=== PATIENT | female | born 1985 | race African-American/Black ===

== ENCOUNTER 2017-09-13 04:38 | Emergency (ER) | payer OTHER ==
[2017-09-13 05:31] LABS: Basophils % (Auto) 0.3 % (0.0-1.8); Eosinophils # (Auto) 0.1 K/mm3 (0.0-0.4); Hematocrit 37.5 % (30.3-42.9); Hemoglobin 12.8 gm/dl (10.1-14.3); Lymphocytes # (Auto) 1.4 K/mm3 (1.2-5.4); Lymphocytes % (Auto) 20.4 % (13.4-35.0); Mean Corpuscular HGB Conc 34 % (30-34); Mean Corpuscular Hemoglobin 31 pg (28-32); Mean Corpuscular Volume 92 fl (79-97); Monocytes # (Auto) 0.4 K/mm3 (0.0-0.8); Monocytes % (Auto) 5.3 % (0.0-7.3); Platelet Count 236 K/mm3 (140-440); Red Blood Count 4.09 M/mm3 (3.65-5.03); Red Cell Distribution Width 13.2 % (13.2-15.2)
--- NOTE | 2017-09-13 05:35 | XRay Report ---
FINAL REPORT EXAM: XR ANKLE 2V RT HISTORY: right ankle pain TECHNIQUE: AP and lateral views of the right ankle were obtained. FINDINGS: The ankle mortise is well maintained. There is no evidence of fracture or joint effusion. The soft tissues are well maintained. IMPRESSION: Within normal limits
[2017-09-13 05:41] LABS: BUN/Creatinine Ratio 33; Blood Urea Nitrogen 13 mg/dL (7-17); Calcium 8.9 mg/dL (8.4-10.2); Hemolysis Index 2
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
[2017-09-13] MEDS ORDERED: ANTIBIOTIC OINT TP STA (06:51)
[2017-09-13] MEDS ORDERED: TYLENOL PO PRN (06:52)
[2017-09-13 07:06] LABS: Bilirubin,Urine NEG (Negative); Blood,Urine NEG (Negative); Color,Urine Yellow (Yellow); HCG Qualitative,Urine Negative (Negative); Mucus,Urine 1+ /HPF; Protein,Urine <15 mg/dL mg/dL (Negative); Urobilinogen,Urine < 2.0 mg/dL (<2.0)
[2017-09-13 07:14] LABS: Amphetamine Screen,Urine PRESUMPTIVE NEGATIVE; Cannabinoid Screen,Urine PRESUMPTIVE NEGATIVE; Cocaine Screen,Urine PRESUMPTIVE NEGATIVE; Methadone Screen,Urine PRESUMPTIVE NEGATIVE; Opiate Screen,Urine PRESUMPTIVE NEGATIVE
[2017-09-13 07:26] LABS: Benzodiazepines Screen,Urine PRESUMPTIVE POSITIVE
[2017-09-13 16:17] VITALS: BP 120/71
== END 2017-09-13 12:30 | disposition home or self-care (01) ==
LOC: ED 04:38
DX: S40.812A Abrasion of left upper arm, initial encounter (principal); S40.811A Abrasion of right upper arm, initial encounter; G43.909 Migraine, unspecified, not intractable, without status migrainosus; Z79.899 Other long term (current) drug therapy; Y04.2XXA Assault by strike against or bumped into by another person, initial encounter; Y93.89 Activity, other specified; Y92.89 Other specified places as the place of occurrence of the external cause; Y99.8 Other external cause status
CPT/HCPCS: 36415; 73600; 80048; 80307; 81001; 81025; 85025; 99284; G0480; 80320